=== PATIENT | female | born 1940 | race Native Hawaiian/Other Pacific Islander ===

== ENCOUNTER 2017-06-01 09:38 | Outpatient (CLI) | payer OTHER ==
[~2017-06-01 09:38] MED LIST: ALLO300T23 PO; ALPR0.2566 PO; CITALOPRAM40 MG PO; FLUTICASONE50 MCG NAS; FURO20TA67 PO; LEVOTHYROXIN100 MC1 PO; LIPITOR20 MG PO; LISI20TA11 PO; MECLIZINE12.5 MG OR; METOPROLOL25 M1 OR; MIRALAX3350 N1 OR; MOBIC15 MG PO; MONTELUKAST SOD10 MG PO; MYSOLINE50 MG OR; NEXIUM 24HR20 MG PO; POTASSIUM CHLO10 ME2 OR; TIROSINT100 MCG OR; TIZA4TAB5 PO; TRAM50TA PO; XYZAL5 MG OR
== END 2017-06-01 10:40 | disposition home or self-care (01) ==
LOC: RAD 09:38
DX: G25.81 Restless legs syndrome (principal); M54.2 Cervicalgia; R60.0 Localized edema; M16.0 Bilateral primary osteoarthritis of hip; M54.5 Low back pain; Z68.27 Body mass index [BMI] 27.0-27.9, adult; M79.7 Fibromyalgia; M47.816 Spondylosis without myelopathy or radiculopathy, lumbar region; M81.0 Age-related osteoporosis without current pathological fracture

== ENCOUNTER 2018-02-13 09:50 | Outpatient (CLI) | payer OTHER | END 2018-02-13 21:48 | disposition home or self-care (01) | LOC: RESP 09:50 | DX: J44.9 Chronic obstructive pulmonary disease, unspecified (principal) | CPT/HCPCS: 94664 ==

== ENCOUNTER 2019-04-19 13:42 | Outpatient (CLI) | payer OTHER ==
[2019-04-19 14:13] LABS: PLATELET COUNT 183 K/uL (152-353)
[2019-04-19 14:23] LABS: POTASSIUM 3.9 mmol/L (3.6-5.2)
== END 2019-04-19 19:45 | disposition home or self-care (01) ==
LOC: LABW 13:42
PROVIDERS: Nurse Practitioner Family
DX: M10.09 Idiopathic gout, multiple sites (principal); M79.7 Fibromyalgia; M81.0 Age-related osteoporosis without current pathological fracture
CPT/HCPCS: 36415; 80053; 84550; 85027; 85651; 86140

== ENCOUNTER 2019-08-06 10:26 | Outpatient (CLI) | payer OTHER | END 2019-08-06 19:48 | disposition home or self-care (01) | LOC: RAD 10:26 | DX: M81.0 Age-related osteoporosis without current pathological fracture (principal) ==

== ENCOUNTER 2019-11-14 08:48 | Outpatient (CLI) | payer OTHER | END 2019-11-14 19:24 | disposition home or self-care (01) | LOC: US 08:48 | DX: R10.84 Generalized abdominal pain (principal); R10.9 Unspecified abdominal pain ==

== ENCOUNTER 2020-08-18 08:30 | Outpatient (CLI) | payer OTHER | END 2020-08-18 19:08 | disposition home or self-care (01) | LOC: RAD 08:30 | DX: J44.9 Chronic obstructive pulmonary disease, unspecified (principal) ==